=== PATIENT | male | born 1970 | race Caucasian/White ===

== ENCOUNTER → 2020-03-29 | Outpatient (CLI) | payer OTHER ==
[~2020-03-29] MED LIST: HYDROCODON-ACE1 EAC7 PO
== END ==
LOC: LAB 09:49
PROVIDERS: ATTEND Neuromusculoskeletal Medicine & OMM
DX: R06.02 Shortness of breath (principal); R51 Headache; Z20.828 Contact with and (suspected) exposure to other viral communicable diseases

== ENCOUNTER → 2020-08-04 | Outpatient (CLI) | payer OTHER | LOC: LAB 14:56 | PROVIDERS: ATTEND Nurse Practitioner | DX: Z20.828 Contact with and (suspected) exposure to other viral communicable diseases (principal) ==

== ENCOUNTER → 2020-08-14 | Outpatient (CLI) | payer OTHER | LOC: LAB 14:24 | PROVIDERS: ATTEND Nurse Practitioner | DX: Z20.828 Contact with and (suspected) exposure to other viral communicable diseases (principal) ==